=== PATIENT | male | born 1980 | race African-American/Black ===

== ENCOUNTER 2021-08-14 12:17 | Emergency (ER) | payer SELFPAY | END 2021-08-14 13:48 | disposition home or self-care (01) | LOC: ERS 12:17 | DX: G47.00 Insomnia, unspecified (principal); F19.10 Other psychoactive substance abuse, uncomplicated; I10 Essential (primary) hypertension; F17.210 Nicotine dependence, cigarettes, uncomplicated; Z79.899 Other long term (current) drug therapy | CPT/HCPCS: 99283 ==

== ENCOUNTER 2023-12-19 07:05 | Emergency (ER) | payer SELFPAY ==
[2023-12-19] MEDS ORDERED: Ibuprofen 800 MG TAB ONE (07:55)
== END 2023-12-19 08:00 | disposition home or self-care (01) ==
LOC: ERS 07:05
DX: M25.561 Pain in right knee (principal); M25.562 Pain in left knee; I10 Essential (primary) hypertension; F17.210 Nicotine dependence, cigarettes, uncomplicated
CPT/HCPCS: 99283